=== PATIENT | male | born 1960 | race Caucasian/White ===

== ENCOUNTER 2020-05-03 14:11 | Outpatient (RCR) | payer MEDICARE, SELFPAY ==
--- NOTE | 2020-05-03 14:45 | PTOPEVAL ---
Thank you for referring Austin Guthrie to [facility].? The patient is scheduled to be seen for therapy? ___2_x/week for 12 visits. Please review, sign, date and return this plan of care RUTH. I agree with and certify that the following plan of care is medically necessary. Referring Physician Date Admitting Provider: Attending Provider: Enrique De La Cruz, Referring Provider: *PT Outpatient Evaluation Start: 05/03/20 14:10 Freq: Status: Active Protocol: Document 05/03/20 14:10 MASON (Rec: 05/03/20 14:44 MASON [email or web address]) Therapy Assessment Status Assessment Status Assessment Status Evaluation Evaluation Information Problem Diagnosis right TKA Onset 04/27/20 Subjective Information Pt. reports that he underwent Query Text:As Reported By Patient/ right TKA on 04/27/20. He Family reports that since returning home he has been doing exercise and using a described CPM machine. He states that he is now getting to where he is a little more comfortable with activity. He states that he is using a cane in the house and a walker outside the home. He reports that he was driving prior to surgery. He reports that he only used an AD the last couple weeks before surgery. He reports that his goal is to improve knee strength and mobility and to walk normal. Prior Level of Function Activity Level (Last 3 Months) Occupation disabled Hand Dominance Right Activity of Daily Living Ability Independent Indoor/Home Mobility Independent Community Mobility Independent Stairs Ability Independent Functional Cognition (Planning, Shopping Independent , Taking Medications) Cooking Yes Cleaning Yes Laundry Yes Shopping Yes Driving Yes Pain Assessment Pain Scale Pain Scale Used Numeric (1 - 10) Self Report Pain Assessment Right Knee(s) Reported Pain Level 4 Lowest Pain Intensity 4 Greatest Pain Intensity 9 Pain Aggravating Factors Exercise/Activity,Walking Pain Score Pain Score 4: Self Report Interventions Used Interventions Used By Clinicians
--- NOTE | 2020-06-28 17:12 | PCPTNOTE ---
Pt. attended a total of 5 treatment sessions from 05/03/20 to 05/17/20. He has failed to return to the clinic and will be discharged from our care. Refer to pt. last daily note for discharge status. Hebert Martin, MPT
== END 2020-05-17 09:19 | disposition home or self-care (01) ==
LOC: CHSPT 14:11
PROVIDERS: Visit Provider Orthopaedic Surgery
DX: Z47.1 Aftercare following joint replacement surgery (principal); Z96.651 Presence of right artificial knee joint
CPT/HCPCS: 97016; 97110; 97161

== ENCOUNTER 2021-12-06 21:41 | Emergency (ER) | payer MEDICARE, SELFPAY ==
[2021-12-06 21:48] VITALS: BP 132/90; PULSE 71; RESP 16; TEMP 36.3; O2SAT 95
--- NOTE | 2021-12-06 22:26 | ED.ANIMALBIT ---
HPI - Animal Bite General Chief Complaint: Animal Bite Stated Complaint: stung by a bunch of hornets Time Seen by Provider: 12/06/21 21:45 Source: patient and RN notes reviewed Mode of arrival: ambulatory Limitations: no limitations History of Present Illness complaint: other (wasp stings) Onset (ago): day(s) (1) Animal: other (wasps) Location - Extremities: Right: forearm and hand Pain description: dull Severity scale (1-10): 3 Context: unprovoked Associated symptoms: erythema Related Data Allergies Allergy/AdvReac Type Severity Reaction Status Date / Time No Known Allergies Allergy Unknown Verified 12/06/21 22:48 NKFA Allergy Unknown Other Uncoded 12/06/21 22:48 Review of Systems Review of Systems: All systems reviewed & are unremarkable except as noted in HPI and below Constitutional: Constitutional: Reports no additional constitutional complaints Eyes: Eyes: Reports no additional eye complaints Comments: minimal facial swelling ENT: Reports system reviewed and no additional complaints, except as documented Cardiovascular: Cardiovascular: Reports no additional cardiovascular complaints Respiratory: Respiratory: Reports no additional respiratory complaints Gastrointestinal: Gastrointestinal: Reports no additional gastrointestinal complaints Musculoskeletal: Musculoskeletal: Reports no additional musculoskeletal complaints Comments: wasp stings Integumentary/Breasts: Skin/Breast: Reports system reviewed and no additional complaints, except as docu Neurologic: Reports system reviewed and no additional complaints, except as documented Psychiatric: Psychiatric: Reports no additional psychiatric complaints Endocrine: Endocrine: Reports no additional endocrine complaints Hematologic/Lymphatic: Hematologic/Lymphatic: Reports no additional hematologic/lymphatic complaints Allergic/Immunologic: Allergic/Immunologic: Reports no additional allergic/immunologic complaints PMFSH Past Medical History Medical History (Updated 12/17/21 @ 13:14 by Merari Story MD) Wasp sting Exam Const: General: healthy appearing and no acute distress Nutritional Appearance: well nourished Orientation/consciousness: patient oriented x3 Limitations: no limitations HENMT: Head: normal to inspection Ears: external ears normal, TM's normal bilaterally and EAC's normal General nose exam: Normal external nose present and Normal nares present Face and sinus: normal facial exam and sinuses nontender Mouth: Yes Normal oral and palatal mucosa present and Yes moist mucous membranes Teeth and gingiva: dentition normal Throat: posterior oropharynx normal Eyes: Conjunctivae: conjunctivae normal Pupils: Equal, round and reactive pupils present EOM: EOMs intact bilaterally Neck: Neck: normal visual inspection, no lymphadenopathy and no meningeal signs Chest: Chest palpation & inspection: normal inspection of the chest Resp: Effort & Inspection: normal respiratory effort Auscultation: clear to auscultation bilaterally Cardio: Rate: regular rate Rhythm: regular rhythm GI: GI Palp: Yes Soft to palpation and No Tenderness to palpation present (GI) Auscultation: normal bowel sounds : General: Yes bladder normal to palpation and Yes no CVA tenderness Back/Spine/Pelvis: Back: no CVA tenderness Skin: General skin exam: normal color Rashes: no rashes Wounds: no wounds Neuro: General: patient oriented x3, moves all extremities, no meningeal signs, no focal motor deficits and CN's II-XI intact bilaterally Cranial nerves: Yes Equal, round and reactive pupils present and Yes Nystagmus not present Speech: normal speech Gait exam (Neuro): Normal gait present Extrem: General: normal to inspection and no pedal edema Other: right hand and forearm minimal redness, swelling and tenderness Psych: Mental Status: mental status grossly normal Affect: normal affect Attitude: cooperative Course Course Emergency Course:
[2021-12-06] MEDS: IBUPROFEN 400 MG TABLET 800 MG PO (22:31)
[2021-12-06] MEDS: methylPREDNISolone SOD SUCC 125 MG VIAL IM (22:33)
[2021-12-06 22:57] VITALS: BP 124/71; PULSE 71; RESP 18; TEMP 36.3; O2SAT 94
== END 2021-12-06 23:04 | disposition home or self-care (01) ==
PROVIDERS: Emergency Provider Emergency Medicine; PCP Family Medicine
DX: T63.451A Toxic effect of venom of hornets, accidental (unintentional), initial encounter (principal); L03.90 Cellulitis, unspecified
CPT/HCPCS: 96372; 99283; A9270; J2930

== ENCOUNTER 2022-07-05 13:05 | Outpatient (RCR) | payer MEDICARE, SELFPAY ==
--- NOTE | 2022-07-05 13:31 | PTOPEVAL1 ---
Assessment and note entered by Hebert Martin Evaluation Information Assessment Status Evaluation Diagnosis right shoulder pain Onset 05/24/22 Subjective Information Pt. reports he received a flu shot about 7 weeks ago. He reports pain radiates from the shoulder to the right elbow. He notices most pain with reaching overhead. He states that pain will increase with cutting wood and mowing grass. He reports that pain has improved only slightly. He states that pain does not disrupt his sleep. He does utilize hydrocodone and has since 1992. He report that when pain gets intense he cannot do any activty with the right arm. He reports that his goal is to reduce his pain with activity. Reported Pain Level Pain Score 7: Self Report Assessment PT Clinical Summary Pt. is a 62 year old male who enters the clinic with right shoulder pain. He presents with impaired mobility, impaired strength, pain and impaired postural awareness. Special testing in consistent with impingement syndrome on the right. Continued skilled PT is indicated in order to improve these areas to allow the pt. improved comfort with all IADL's. Plan of Care Interventions Electrical Stimulation,Hot Pack/Cold Pack,Manual Therapy,Neuro Re-education,Patient/Caregiver Educati,Therapeutic Activities,Therapeutic Exercise,Self-Care/Home Management PT Services Indicated Yes Treatment Frequency and 2x/week x 10 visits Duration These treatments will address the objective and functional deficits as defined above. The patient will be advanced safely and appropriately in order for the patient to progress towards his/her prior level of function. Additional exercises will be introduced and as well as a comprehensive home exercise program upon discharge, if needed, ?to ensure carryover of functional gains achieved in the clinic. This treatment plan has been reviewed and agreement upon by the patient.
== END 2022-08-02 20:00 | disposition home or self-care (01) ==
LOC: CHSPT 13:05
PROVIDERS: PCP Family Medicine; Visit Provider Family Medicine
DX: M25.511 Pain in right shoulder (principal)
CPT/HCPCS: 97014; 97110; 97161; G0283

== ENCOUNTER 2022-08-22 15:26 | Emergency (ER) | payer MEDICARE, SELFPAY ==
--- NOTE | ~2022-08-22 | XR_ITS ---
EXAMINATION: XR shoulder RT min 2V DATE: 08/22/2022 16:10 INDICATION: Right shoulder injury. TECHNIQUE: 3 views of right shoulder were obtained. COMPARISON: None. FINDINGS: Bone alignment is normal. No fracture. There is mild osteoarthritis of glenohumeral joint a nd moderate osteoarthritis of acromioclavicular joint. IMPRESSION: 1. Polyarticular osteoarthritis. Reviewed, dictated and finalized at location L.
[2022-08-22 15:26] VITALS: BP 114/83; PULSE 100; RESP 18; TEMP 35.9; O2SAT 97
--- NOTE | 2022-08-22 15:53 | ED.GENADULT ---
HPI - General Adult General Chief complaint: Extremity Injury, Upper Stated complaint: fall; right shoulder pain Time Seen by Provider: 08/22/22 15:50 History of Present Illness HPI narrative: the patient is a 62-year-old male who is on hydrocodone 7.5 mg as needed pain. Three days ago, on 08/20/2022, he tripped and fell. He put out his right arm to break his fall. He developed pain in the right shoulder. He has been unable to raise his right arm at the shoulder since that time. No pain in the elbow or forearm or distal upper arm. No chest pain. No neck or back pain that is different than usual. No other complaints. no numbness in the right arm . He did take 2 hydrocodone 7.5 mg tablets prior to arrival. Related Data Home Medications Medication Instructions Recorded Confirmed duloxetine 30 mg capsule,delayed 30 mg PO DAILY 08/22/22 08/22/22 release hydrocodone 7.5 mg-acetaminophen 1 tablet PO Q4H PRN Pain (Scale 08/22/22 08/22/22 325 mg tablet Score 7-10) lisinopril 10 mg tablet 10 mg PO DAILY 08/22/22 08/22/22 omeprazole 20 mg capsule,delayed 20 mg PO DAILY 08/22/22 08/22/22 release rosuvastatin 5 mg tablet 5 mg PO DAILY 08/22/22 08/22/22 Allergies Allergy/AdvReac Type Severity Reaction Status Date / Time No Known Allergies Allergy Unknown Verified 08/22/22 15:32 NKFA Allergy Unknown Other Uncoded 12/06/21 22:48 Review of Systems Review of Systems: All systems reviewed & are unremarkable except as noted in HPI and below Constitutional: Constitutional: Denies chills, Denies excessive sweating, Denies fatigue, Denies fever(s), Denies headache(s) and Denies weakness Eyes: Eyes: Denies change in vision and Denies photophobia ENT: Denies dysphagia, Denies dizziness, Denies headache(s), Denies lip swelling, Denies nasal congestion, Denies sore throat and Denies tongue swelling Cardiovascular: Cardiovascular: Denies chest pain, Denies syncope, Denies rapid heart rate and Denies dyspnea Respiratory: Respiratory: Denies cough, Denies dyspnea and Denies wheezing Gastrointestinal: Gastrointestinal: Denies abdominal pain, Denies constipation, Denies dysphagia, Denies diarrhea, Denies nausea and Denies vomiting Genitourinary: Genitourinary: Denies hematuria, Denies dysuria, Denies urinary frequency and Denies urinary urgency Musculoskeletal: Musculoskeletal: Denies back pain, Denies myalgias, Reports arthralgias ( right shoulder), Denies joint swelling and Denies numbness Integumentary/Breasts: Skin/Breast: Denies pruritus, Denies erythema and Denies rash Neurologic: Denies confusion, Denies dizziness, Denies syncope, Denies headache(s), Denies focal weakness, Denies numbness and Denies weakness Psychiatric: Psychiatric: Denies anxiety and Denies confusion Endocrine: Endocrine: Denies excessive sweating and Denies fatigue Hematologic/Lymphatic: Hematologic/Lymphatic: Denies easy bleeding and Denies easy bruising Allergic/Immunologic: Allergic/Immunologic: Denies lip swelling, Denies tongue swelling and Denies wheezing PMFSH Past Medical History Medical History Wasp sting Exam Const: General: healthy appearing, no acute distress, alert and well nourished Nutritional Appearance: well nourished Orientation/consciousness: patient oriented x3 Limitations: no limitations HENMT: Head: normal to inspection Ears: external ears normal Face/Nose/Sinus: normal facial exam Face and sinus: normal facial exam Mouth: Yes moist mucous membranes Throat: posterior oropharynx normal Eyes: Conjunctivae: conjunctivae normal Pupils: Equal, round and reactive pupils present EOM: EOMs intact bilaterally Neck: Neck: normal visual inspection and no meningeal signs Other: no cervical thoracic or lumbar bony spinal tenderness. Chest: Chest palpation & inspection: normal inspection of the chest and no tenderness Resp: Effort & Inspection: normal respiratory
--- NOTE | 2022-08-22 16:20 | PC.NURSE ---
PT TOLERATED SLING PLACEMENT WELL. +PMS POST APPLICATION.
[2022-08-22] MEDS: CYCLOBENZAPRINE HCL 10 MG TABLET PO (16:27)
[2022-08-22 16:35] VITALS: BP 118/70; PULSE 88; RESP 18; O2SAT 97
== END 2022-08-22 16:35 | disposition home or self-care (01) ==
LOC: CHSED 16:28
PROVIDERS: Emergency Provider Emergency Medicine; PCP Family Medicine
DX: S43.401A Unspecified sprain of right shoulder joint, initial encounter (principal); W01.0XXA Fall on same level from slipping, tripping and stumbling without subsequent striking against object, initial encounter; Z79.891 Long term (current) use of opiate analgesic
CPT/HCPCS: 73030; 99283; A4565; A9270

== ENCOUNTER 2023-06-04 17:47 | Emergency (ER) | payer MEDICARE, SELFPAY ==
[2023-06-04] VITALS (31 sets, daily range): BP systolic 80–117; BP diastolic 59–80; PULSE 78–113; RESP 18–24; TEMP 36.8–37.7; O2SAT 75–100
--- NOTE | ~2023-06-04 | XR_ITS ---
EXAM: XR ankle LT min 3V DATE: 06/04/2023 22:35 HISTORY: left ankle injury . COMPARISON: None available. FINDINGS: Decreased mineralization. Uncomplicated appearing screw and plate fixation of the distal f ibula and cannulated screw in the distal tibia. Incidental note of a fractured medial cannulated scre w in the foot. No acute fracture or dislocation. Old healed distal tibial and fibular fractures. No l ytic or blastic lesion. Stable medial widening of the tibiotalar articulation, with mild degenerative change. No erosion or periosteal change. Soft tissues within normal limits. IMPRESSION: No acute osseous finding the left ankle. Incidental note of a fractured cannulated screw in the medial midfoot. Reviewed, dictated and finalized at location K. IMPRESSION: No acute osseous finding the left ankle. Incidental note of a fract ured cannulated screw in the medial midfoot.
--- NOTE | ~2023-06-04 | CT_ITS ---
EXAMINATION: CT abdomen pelvis w con DATE: 06/04/2023 20:58 INDICATION: abdominal pain, recent colon resection TECHNIQUE: Computed tomography (CT) of the abdomen and pelvis was performed with 100 mL Omnipaque-350 intravenous contrast. Automated exposure control and iterative reconstruction technique were employe d. The dose-length product was 334.92 mGy-cm. COMPARISON: 01/16/2006, images only. FINDINGS: Motion artifact in the upper abdomen. Lower thorax: Coronary artery calcification. Bilateral scar/atelectasis. Liver: Multiple simple cysts. Biliary/Gallbladder: Gallbladder is normal. No bile duct dilation. Pancreas: No mass or duct dilation. Spleen: Normal. Adrenals:No mass. Kidneys: No suspicious mass, obstructing stone, or hydronephrosis. Bilateral cortical thinning and sc arring. Subcentimeter hypodensities, likely represent cysts. GI tract: Multiple dilated loops of small bowel with multiple transition points and interspersed area s of normal caliber bowel. Uncomplicated small bowel anastomosis. Moderately dilated large bowel anas tomosis without proximal large bowel obstruction. Normal appendix. Diverticulosis without diverticuli tis. Mesentery/Peritoneum: No ascites, mass, or free air. Retroperitoneum: No mass. Atherosclerotic abdominal aortic and/or arterial calcifications. Pelvis: Suprapubic catheter. Marked urinary bladder wall thickening. Soft Tissues: Soft tissues and body wall unremarkable. Bones: No acute osseous finding. Severe thoracolumbar scoliosis. IMPRESSION: Scattered segmental areas of small bowel dilation with multiple transition points, may represent mult ifocal ileus or multifocal areas of partial obstruction. Moderate cystitis. Reviewed, dictated and finalized at location K. IMPRESSION: Scattered segmental areas of small bowel dilation with multiple transition poin ts, may represent multifocal ileus or multifocal areas of partial obstruction. Moderate cystitis.
--- NOTE | ~2023-06-04 | XR_ITS ---
Portable upright view of the abdomen Clinical history: NG tube placement Findings: NG tube is in satisfactory position. Bowel gas pattern is nonspecific. No evidence for obst ruction or free air. No abnormal mass lesion or calcification is seen. Prominent dextroscoliosis of t he spine noted. Impression: NG tube in satisfactory position. Reviewed, dictated and finalized at location . Impression: NG tube in satisfactory position.
--- NOTE | 2023-06-04 18:06 | ED.ABDPAIN ---
HPI - Abdominal Pain General Chief Complaint: Abdominal Pain Stated Complaint: abdominal pain Time Seen by Provider: 06/04/23 17:50 Source: patient Mode of arrival: ambulatory History of Present Illness HPI narrative: patient is a 62-year-old male with a significant past medical history presents today with abdominal pain. Patient recently had a bowel resection in early April. He states he had blockages and that turned ischemic and that need the bowel resection. He states that he has had bad abdominal pain about 7/10 pain. However he does say that he has not a bowel movement since Sunday so has been 3 days now. He is taking [place] for pain. He states his doctor to give him something for constipation however for taking the [place] does. He apparently also had a little bit of blood in the urine and his home health nurse told to go to the emergency department. MD elicited complaint: abdominal pain Pertinent past history: constipation and other ( Bowel resection) Onset (ago): hour(s) Pain Consistency: constant Location: diffuse Severity: similar to previous episodes Quality: cramping and aching Exacerbating factors: nothing Relieving factors: nothing Associated symptoms: denies other symptoms Related Data Home Medications Medication Instructions Recorded Confirmed duloxetine 30 mg capsule,delayed 30 mg PO DAILY 08/22/22 06/04/23 release hydrocodone 7.5 mg-acetaminophen 1 tablet PO Q4H PRN Pain (Scale 08/22/22 06/04/23 325 mg tablet Score 7-10) lisinopril 10 mg tablet 2.5 mg PO DAILY 08/22/22 06/04/23 rosuvastatin 5 mg tablet 5 mg PO DAILY 08/22/22 06/04/23 apixaban 5 mg tablet (Eliquis) 5 mg PO BID 06/04/23 06/04/23 metoprolol succinate 25 mg 25 mg PO DAILY 06/04/23 06/04/23 tablet,extended release 24 hr mirtazapine 15 mg disintegrating 15 mg PO DAILY 06/04/23 06/04/23 tablet naloxegol 25 mg tablet (Movantik) 25 mg PO DAILY 06/04/23 06/04/23 pantoprazole 40 mg tablet,delayed 40 mg PO DAILY 06/04/23 06/04/23 release Allergies Allergy/AdvReac Type Severity Reaction Status Date / Time No Known Allergies Allergy Unknown Verified 06/04/23 19:33 NKFA Allergy Unknown Other Uncoded 06/04/23 19:33 Review of Systems Review of Systems: All systems reviewed & are unremarkable except as noted in HPI and below Constitutional: Constitutional: Reports no additional constitutional complaints Eyes: Eyes: Reports as per HPI ENT: Reports system reviewed and no additional complaints, except as documented Cardiovascular: Cardiovascular: Reports no additional cardiovascular complaints Respiratory: Respiratory: Reports no additional respiratory complaints Gastrointestinal: Gastrointestinal: Reports as per HPI, Reports abdominal pain and Reports nausea Genitourinary: Genitourinary: Reports no additional male genitourinary complaints Musculoskeletal: Musculoskeletal: Reports no additional musculoskeletal complaints Integumentary/Breasts: Skin/Breast: Reports system reviewed and no additional complaints, except as docu Neurologic: Reports system reviewed and no additional complaints, except as documented Psychiatric: Psychiatric: Reports no additional psychiatric complaints Endocrine: Endocrine: Reports no additional endocrine complaints Hematologic/Lymphatic: Hematologic/Lymphatic: Reports no additional hematologic/lymphatic complaints Allergic/Immunologic: Allergic/Immunologic: Reports no additional allergic/immunologic complaints PMFSH Past Medical History Medical History Wasp sting Exam Const: General: healthy appearing Nutritional Appearance: well nourished Orientation/consciousness: patient oriented x3 HENMT: Head: normal to inspection Ears: external ears normal Face/Nose/Sinus: Normal external nose present Face and sinus: normal facial exam Eyes: Conjunctivae: conjunctivae normal Pupils: Equal, round and reactive pupils present EOM: EOMs
[2023-06-04 18:23] LABS: Basophils Absolute Auto 0.06 K/mm3 (0.00-0.10); Basophils Percent Auto 0.3 % (0.0-1.0); Eosinophils Absolute Auto 0.14 K/mm3 (0.02-0.50); Eosinophils Percent Auto 0.7 % (1.0-6.0); Hematocrit 38.9 % (40.0-54.0); Hemoglobin 12.4 g/dL (14.0-18.0); Immature Granulocyte Percent A 0.5 % (0.0-0.0); Lymphocytes Absolute Auto 1.56 K/mm3 (1.10-4.50); Lymphocytes Percent Auto 7.9 % (18.0-42.0); Mean Corpuscular HGB Conc 31.9 g/dL (32.0-36.0); Mean Corpuscular Hemoglobin 27.8 pg (27.0-31.0); Mean Corpuscular Volume 87.2 fL (78.0-102.0); Monocytes Absolute Auto 2.02 K/mm3 (0.10-0.90); Monocytes Percent Auto 10.2 % (2.0-11.0); Neutrophils Absolute Auto 15.8 K/mm3 (1.7-7.2); Neutrophils Percent Auto 80.4 % (50.0-70.0); Platelet Count Result 347 K/mm3 (150-420); Red Blood Count 4.46 M/mm3 (4.70-6.10); Red Cell Distribution Width 14.6 % (11.6-14.4); White Blood Count 19.7 K/mm3 (4.8-10.8)
[2023-06-04 19:01] LABS: Partial Thromboplastin Time 28.2 SEC (23.90-30.70); Prothrombin Time 11.1 Seconds (9.50-12.10)
[2023-06-04 19:03] LABS: Alanine Aminotransferase 21 U/L (16-63); Albumin Level 2.8 g/dL (3.4-5.0); Alkaline Phosphatase 97 U/L (46-116); Anion Gap 8 mmol/L (8-16); Aspartate Amino Transferase 12 U/L (15-37); Bilirubin,Total 0.8 mg/dL (0.00-1.00); Blood Urea Nitrogen 17 mg/dL (7-18); Calcium 8.8 mg/dL (8.5-10.1); Carbon Dioxide 28 mmol/L (21-32); Chloride 99 mmol/L (98-108); Estimated CRCL calculation 60 ml/min; Estimated Glomerular Filt Rate > 60; Glucose 99 mg/dL (70-99); Lipase 49 U/L (16-77); Osmolality Calculated 281 mOsm/kg (285-295); Potassium 4.6 mmol/L (3.5-5.1); Sodium 135 mmol/L (136-145); Total Protein 7.3 g/dL (6.4-8.2)
[2023-06-04] MEDS: SODIUM CHLORIDE 0.9% IV 1,000 ML 999 ML IV CONT (19:22)
[2023-06-04] MEDS: ONDANSETRON INJ 4 MG/2 ML VIAL IV PUSH (19:22)
[2023-06-04] MEDS: MORPHINE SULFATE (*CRX) 4 MG/ML INJ IV PUSH ×2 (19:22→22:21)
--- NOTE | 2023-06-04 19:24 | PC.NURSE ---
Report received, pt has tremors and shivering upon assessment, he c/o severe pain in his abd. IV inserted as per order and IVF started. Pt given pain meds, ERP informed on pt status, order for blood cx obtained.
--- NOTE | 2023-06-04 21:41 | PC.NURSE ---
CT results back and pt discussing POC for transfer c pt and . Pt had his previous bowel resection done at [facility] in [place] and want to transfer back there because his Dr is located there. Call to be made to [facility].
[2023-06-04] MEDS: SODIUM CHLORIDE 0.9% IV 1,000 ML 150 ML IV CONT (21:53)
--- NOTE | 2023-06-04 22:10 | PC.NURSE ---
Dr rivera c surgeon at [facility] orders received and Dr accepted for transfer, await callback from [facility] for bed assignment and placement. Pt has pain increasing again. ERP Dr Sandoval notified for an order for pts pain.
[2023-06-04 22:15] LABS: Bilirubin Urine 2+ (Negative); Blood Urine 3+ (Negative); Glucose Urine UA Negative (Negative); Ketones Urine Trace (Negative); Leukocyte Esterase Ur 2+ LEU/UL (Negative); Nitrate Urine Positive (Negative); Protein Urine 3+ (Negative)
[2023-06-04 22:21] LABS: Add Urine Microscopic? YES; Appearance Urine Turbid (Clear); Bacteria Urine 1+ /hpf; Color Urine Dark Yellow (Yellow); RBC Urine >75 /hpf (0-2); Squamous Epithelial Cell Urine None seen /hpf (Few); WBC Urine >75 /hpf (0-3)
--- NOTE | 2023-06-04 22:34 | PC.NURSE ---
After Dr Sandoval spoke c hospitalist, they are wanting urology on board for pts urinary issues and blood in his catheter. Now blanca await callback from urology before admission accepted.
[2023-06-05] VITALS (11 sets, daily range): BP systolic 93–125; BP diastolic 69–83; PULSE 84–88; RESP 18–20; TEMP 37.2–37.3; O2SAT 81–98
[2023-06-05] MEDS: ZOLPIDEM TARTRATE (*CRX) 5 MG TABLET PO (00:35)
--- NOTE | 2023-06-05 01:20 | PC.NURSE ---
Call back from [facility] c urology for consult. Explained need to transfer RN that pt has SBO and current.y has NG to low suction in place and that he needs this attended to before urology. Transfer RN agreed and will try to get surgeon for GI from [facility] for consult and possible acceptance for transfer. Pt has henson cath in place that has been in place since 05/29/23. Currently draining pink tinged and bhavesh tinged color urine. Pt resting c VSS, call anderson at side. PT has no c/o at this time.
--- NOTE | 2023-06-05 03:02 | PC.NURSE ---
Pt sitting up in bed, unable to sleep, pt c/o pain coming back again and wanting more pain med. Dr Sandoval notified of pt pain, order obtained.
[2023-06-05] MEDS: MORPHINE SULFATE (*CRX) 2 MG/ML INJ IV PUSH (03:10)
--- NOTE | 2023-06-05 03:22 | PC.NURSE ---
Pt placed in more comfortable bed from 2nd floor in order to rest, TV on, henson draining to gravity of bhavesh tea-colored urine and NG placed to low suction again. Call anderson at pt side, VSS. Awaiting call back from [facility] Dr Khanna so he can speak c Dr Sandoval about updates and possible transfer back to [facility]
[2023-06-05] MEDS: DEXTROSE 5%/0.45% SOD CHL 1,000 ML 100 ML IV CONT (03:40)
--- NOTE | 2023-06-05 04:11 | PC.NURSE ---
Call placed back to [facility] to attempt to speak maryuri Khanna again. Transfer line will try to reach out to hospitalist Dr Khanna and have him call back to speak maryuri Sandoval.
--- NOTE | 2023-06-05 04:25 | PC.NURSE ---
Pt sleeping and resting comfortable, VSS, NG to low suction maintained.
--- NOTE | 2023-06-05 04:26 | PC.NURSE ---
Pt has been accepted at [facility] Dr Sandoval spoke c Dr Khanna, hospitalist again and updated hospitalist on need for transfer to pts. surgeon there for his SBO Dx. Awaiting callback from transfer line RN for bed assignment.
--- NOTE | 2023-06-05 04:45 | PC.NURSE ---
Call back received from [facility] c bed assignment at [facility] Will call and give report.
--- NOTE | 2023-06-05 05:00 | PC.NURSE ---
Report given to Lito at [facility] for pt transfer. Paperwork signed by pt for transfer. Pt to go to bed 243
--- NOTE | 2023-06-08 13:02 | PC.NURSE ---
unable to call pt, no answer, spoke with fortunato at [facility]. states was discharged on 06-06-23. no antibiotics on discharge papers. [facility] family doctor fe bah. call placed to dr bah office. [phone]. spoke to Avery, requested culture results faxed to office, dr bah will review. pt has appt on 06-13-23. fax [phone]
--- NOTE | 2023-06-11 13:09 | PC.NURSE ---
Final blood cultures x 2 reviewed. No growth after 5 days . No changes to plan of care.
== END 2023-06-05 05:47 | disposition short-term general hospital (02) ==
PROVIDERS: Emergency Provider Family Medicine
DX: K56.609 Unspecified intestinal obstruction, unspecified as to partial versus complete obstruction (principal); M25.572 Pain in left ankle and joints of left foot; Z79.899 Other long term (current) drug therapy; Z79.01 Long term (current) use of anticoagulants; Z79.891 Long term (current) use of opiate analgesic
CPT/HCPCS: 36415; 73610; 74177; 80053; 81001; 83690; 85025; 85610; 85730; 87040; 87077; 87086; 87088; 87186; 96361; 96374; 96375; 96376; 99285; A9270; J0696; J2270; J2405; J7030; Q9967